=== PATIENT | female | born 1975 | race Caucasian/White ===

== ENCOUNTER 2017-03-31 09:39 | Observation (INO) | payer BC ==
--- NOTE | ~2017-03-31 | DS ---
Unit #: [id number] #: [id number] Patient: LAURYN DEE [id number] [address] [address] [id number] I MR#: [id number] NAME: LAURYN DEE ROOM: 4 Age: 42 Sex: F Admission Date: 03/31/2017 : 1975 Discharge Date: Attending Physician: Yogesh Robbins M.D. Primary Care Physician: Jordy Navas M.D. DISCHARGE SUMMARY DISCHARGE DIAGNOSES 1. Dyspnea. 2. Atypical chest pain. 3. Hypertension. PROCEDURES PERFORMED The patient underwent a stress echo which shows an left ventricular ejection fraction within normal limits and her valves are within normal limits. DIAGNOSTIC DATA LABORATORY: Most recent, d-dimer 244, sodium 136, potassium 3.5, chloride 104, CO2 24, BUN 19, creatinine 1, glucose 86, white blood cell count 5.8, hemoglobin 5.6, troponin less than 0.03 times 3, TSH 1.8, cholesterol 153, triglycerides 75, LDL 72, HDL 66. HOSPITAL COURSE The patient is a 42-year-old female who has a past medical history of chronic bronchitis. Here she reports that she does exercise three to four times weekly and runs approximately four miles and also plays on four different softball leagues. The patient reports that she has taken Norvasc in the past, but has been taken off of it. The day prior to admission the patient was working out and felt extremely short of breath. It took her 30 minutes to recover and she noted during that time her blood pressure was 155/85. She also had some associated symptoms that included tingling down her left arm as well as in her left upper chest. After some time passed the tingling felt better and she went on to her softball game, but was unable to run to the first base without becoming significantly short of breath and that was unusual for her. In the emergency department her blood pressure was 158/110. She was given nitroglycerin and aspirin for her chest pain. Her blood pressure improved to 118/63. The patient's troponins were less than 0.03 times 3. The patient's cholesterol panel was within normal limits. Her TSH was 1.8. The patient underwent a stress echocardiogram which showed a normal ejection fraction and that her valves were also normal. The patient has been started on lisinopril for her elevated blood pressure. Dr. Robbins has seen the patient and deemed that she is stable for discharge. Unit #: [id number] #: [id number] Patient: LAURYN DEE DISPOSITION The patient will be discharged home. FOLLOWUP 1. Follow up with Dr. Robbins in three weeks. 2. Follow up with primary care provider in one week. DIET Healthy heart diet. ACTIVITY As tolerated. DISCHARGE MEDICATIONS 1. Lisinopril 5 mg p.o. daily. 2. Tylenol 1-2 tablets 325 mg q.4 h. p.r.n. headache. 3. Zyrtec 10 mg p.o. daily. 4. ProAir inhaler 1 puff inhalation p.r.n. wheezing. Dictated by... Delma Lopez A.P.R.N. for Yogesh Robbins M.D. AM/caitlyn TD: 04/01/2017 12:07 JOB #: [id number] DISCHARGE SUMMARY Page 1 of 1 X Delma Lopez APRN X DISCHARGE SUMMARY
--- NOTE | ~2017-03-31 | CR72 ---
[facility]. [facility] A Service of [facility] & [facility] RADIOLOGY TEXT RESULTS PATIENT: LAURYN DEE LOCATION: SEDOF [id number] : [birth year] UNIT #: [id number] AGE: [address]: Yogesh Robbins MD SEX: F ORDER DR: [id number] [place] [id number] I MR#: [id number] Acc #: [id number] NAME: LAURYN DEE : 1975 SEX: F STUDY DATE/TIME: 03/31/2017 UNIT: SEDOF ROOM: [id number] STUDY DESCRIPTION: CR Chest Single View Portable Attending Physician: Yogesh Robbins M.D. Ordering Physician: Jameson Henry M.D. Primary Care Physician: Jordy Navas M.D. MEDICAL IMAGING REPORT This report is preliminary unless electronic signature is present. EXAM Chest portable 03/31/2017 1058 hours HISTORY Chest pain and shortness of air since last night with tingling in arm today. COMPARISON None. FINDINGS Portable upright chest demonstrates normal cardiac, mediastinal and aortic contours. The pulmonary katie are normal. The lungs are well expanded and clear. No effusions. IMPRESSION No acute cardiopulmonary findings. Dictated by... Pham Chacon M.D. THIS IS AN ELECTRONICALLY VERIFIED REPORT Pham Chacon M.D. at 03/31/2017 2:29 PM LUCY/kyaw TD: 03/31/2017 13:31 JOB #: [id number] MEDICAL IMAGING REPORT Page 1 of 1
--- NOTE | ~2017-03-31 | EKG ---
PATIENT: LAURYN DEE UNIT #: [id number] Ventricular Rate: 71 BPM Atrial Rate: 71 BPM P-R Interval: 152 ms QRS Duration: 74 ms Q-T Interval: 410 ms QTC Calculation(Bezet): 445 ms P [place]: 26 degrees Calculated R [place]: 54 degrees Calculated T [place]: 37 degrees Diagnosis Line: Normal sinus rhythm Diagnosis Line: Normal ECG Diagnosis Line: No previous ECGs available Diagnosis Line: Confirmed by SONDRA MANZANO MD ([id number]) on 04/01/2017 Diagnosis Line: 5:50:02 PM INTERPRETING MD: NATACHA TOVAR
--- NOTE | ~2017-03-31 | HP ---
Unit #: [id number] #: [id number] Patient: LAURYN DEE [id number] [address] [place], [place] [address] [id number] I MR#: [id number] NAME: LAURYN DEE ROOM: 574 Age: 42 Sex: F Admission Date: 03/31/2017 : 1975 Attending Physician: Yogesh Robbins M.D. Primary Care Physician: Jordy Navas M.D. HISTORY AND PHYSICAL CHIEF COMPLAINT Chest pain. HISTORY OF PRESENT ILLNESS Ms. Dee is a 42-year-old female that was debilitated by bronchitis in November, December and January of this year. She usually runs 4 miles three to four times a week, as well as playing in four different softball leagues. While she was being treated for bronchitis, she required an inhaler. Her blood pressure was noted to be elevated during this time and she was given Norvasc to take. After her symptoms resolved, she went back to running 4 miles a day and has been playing softball for the last few weeks without any difficulties. Yesterday morning, she was working out and felt as though she was very short of breath. It took her 30 minutes to recover and she took her blood pressure noting that it was 155/85. The associated symptoms with this include tingling down her left arm as well as in her left upper chest. She went to a softball game yesterday afternoon and was unable to run to first base without being extremely short of breath. This is very unusual for her. This morning, her blood pressure was elevated again and she took another blood pressure medicine and called her primary care physician who recommended that she come to the emergency room. Upon arrival, her blood pressure was 158/110. She was given nitroglycerin to her chest as well as aspirin. Her blood pressure has responded and is now 118/63. Currently, during my interview, she is pain-free and is having no symptoms. This information is received from patient interview. PRIOR CARDIAC TESTING HISTORY None. PAST MEDICAL HISTORY Includes: 1. Hypertension, diagnosed in early 2016, while begin treated for bronchitis. She monitors her blood pressures at home and has not required treatment since January as her blood pressures have been in normal range. 2. Seasonal allergies. 3. Left knee surgery. 4. Left ear surgery. HOME MEDICATIONS Include: 1. ProAir one inhalation daily as needed. 2. Claritin one dose daily. 3. Amlodipine 5 mg daily as needed. Unit #: [id number] #: [id number] Patient: LAURYN DEE ALLERGIES No known drug allergies. SOCIAL HISTORY She denies ever using tobacco. She drinks alcoholic socially. She denies the use of drugs. FAMILY HISTORY Mother had diabetes and hypertension and of encephalitis at age 62. Her father is alive and well as well as a sister. REVIEW OF SYSTEMS GENERAL: Denies fever, chills, flu-like symptoms or unintentional weight loss. SKIN: Denies any rashes, ulcerations, or wounds. HEAD: Headache currently. EYES: Denies any sudden change in vision. EARS: Denies any sudden change in hearing. HEMATOLOGY: Denies epistaxis, hemoptysis, hematuria, or melena. THROAT: Denies any problem swallowing. RESPIRATORY: Positive for wheeze, slight cough, and shortness of breath as described in HPI. CHEST: Denies any pain. Positive for palpitations and tachycardia occasionally but no PND or orthopnea. GASTROINTESTINAL: Denies any nausea, vomiting, diarrhea, constipation, or changes in stools. GENITOURINARY: Denies burning or urgency. EXTREMITIES: Denies any swelling or increased pain with walking. NEUROLOGIC: Positive for numbness and tingling of the left arm and left upper chest but no seizure, stroke-like symptoms, dizziness, unsteadiness, or falls. PHYSICAL EXAMINATION VITAL SIGNS: Blood pressure 118/63, heart rate 68, respirations 16, temperature 98.4. GENERAL: Well-developed, well-nourished white female in no acute distress resting in the bed. SKIN: No obvious rashes or ulcerations noted. HEENT: Eyes: PERRLA. No xanthelasma. Oral good dentition, moist mucous membranes, no pallor. NECK: No carotid bruits auscultated bilaterally. No jugular vein distention. SPINE: No scoliosis. LUNGS: Clear to auscultation bilaterally. No wheezes, rales, or rhonchi. CARDIAC: Her heart tones are slightly hyperdynamic with S1 and S2, no murmur, rub, gallop or lift. ABDOMEN: Soft, nontender. Positive bowel sounds. EXTREMITIES: Bilateral pedal pulses are +2. No edema. NEUROLOGIC: Alert and oriented x3. Speech is clear. No obvious neurologic deficits. DIAGNOSTIC STUDIES LABORATORY: BNP 11. D-dimer 233. PT 10.7, INR 0.9. Sodium 136, potassium 3.5, BUN 19, creatinine 1.0, AST 27, ALT 21, albumin 4.7, magnesium 2.1. Troponin less than 0.05 at 10:30 a.m. this morning. test is negative. Hemoglobin 15.6, hematocrit 46, platelets 202, white blood cell count 5.8. Unit #: [id number] #: [id number] Patient: LAURYN DEE IMAGING: CT negative for pulmonary embolus with an incidental mass in the lateral segment of the left lobe and liver measuring several centimeters with a clear central scar. 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 CARDIOVASCULAR: EKG shows normal sinus rhythm, otherwise normal. IMPRESSION 1. Chest pain and dyspnea on exertion. 2. Hypertension. PLAN 1. We will complete a 2D echocardiogram and a stress test. 2. We will follow serial enzymes. 3. We will initiate lisinopril for blood pressure control at a very low dose. 4. Further recommendations based on the above-mentioned testing. Dictated by Pito GalvinPeFrnyRFernyN. for Yogesh Robbins M.D. Juan Pablo TD: 03/31/2017 16:44 JOB #: [id number] HISTORY AND PHYSICAL Page 1 of 1 X X HISTORY AND PHYSICAL
--- NOTE | ~2017-03-31 | CT16 ---
[facility] A Service of [facility] & [facility] / [facility] RADIOLOGY TEXT RESULTS PATIENT: LAURYN DEE LOCATION: [facility] 574-01 : [birth year] UNIT #: [id number] AGE: [address]: Yogesh Robbins MD SEX: F ORDER DR: [id number] [place] [id number] MR#: [id number] Acc #: [id number] NAME: LAURYN DEE : 1975 SEX: F STUDY DATE/TIME: 03/31/2017 11:25 UNIT: SEDOF ROOM: [id number] STUDY DESCRIPTION: CT Angio Chest for PE Attending Physician: Yogesh Robbins M.D. Ordering Physician: Jameson Henry M.D. Primary Care Physician: Jordy Navas M.D. MEDICAL IMAGING REPORT This report is preliminary unless electronic signature is present. EXAM CT angiogram of the chest for pulmonary embolism 03/31/2017 1125 hours HISTORY 42-year-old woman complaining of shortness of air with left-sided chest pain since yesterday. Tingling in left arm today. Elevated D-dimer at 233. Evaluate for acute pulmonary embolism. COMPARISON Chest film 03/31/2017. No prior CT scans. TECHNIQUE Dynamic helical CT angiographic images were obtained from the thoracic inlet through the adrenal glands with contrast. 3-D sagittal and coronal reconstructions were performed. Contrast was Isovue-370 100 mL. Total exam DLP 646 mGy-cm. This CT examination was performed with one or more of the following radiation dose reduction techniques: automatic exposure control, adjustment of mA and/or kV according to patient size, and iterative reconstruction. FINDINGS Images through the thoracic inlet demonstrate no thyroid mass or supraclavicular adenopathy. Images through the chest demonstrate diagnostic quality opacification of the pulmonary arteries which are normal in caliber. There are no filling defects to suggest the presence of pulmonary emboli. The aorta is only partially opacified with contrast. Ascending aorta measures 3.3 cm. No dissection is seen. There is no adenopathy. There is no pericardial or pleural fluid. The esophagus is normal. Lung window images demonstrate minimal dependent linear reticular change in both lungs likely atelectasis. There is no evidence of pneumonia, STS. [facility] A Service of [facility] & [facility] RADIOLOGY TEXT RESULTS PATIENT: LAURYN DEE LOCATION: C5 574-01 : [birth year] UNIT #: [id number] AGE: [address]: Yogesh Robbins MD SEX: F ORDER DR: edema or nodule. Limited views through the upper abdomen demonstrate a large lesion in the lateral segment left lobe of the liver measuring up to 8.7 x 5.9 x 9.6 cm. This has an area of low attenuation within its posterior inferior aspect likely a central scar. This is incompletely evaluated. The appearance and the patient's age suggests that this may represent focal nodular hyperplasia. If not previously evaluated, suggest further evaluation with multiphase liver CT or liver MRI. The adrenal glands are normal. The kidneys appear normal. The bones are unremarkable. IMPRESSION 1. No evidence of pulmonary embolism. 2. Normal aorta. 3. No acute findings in the lungs. There is no pleural fluid or pneumothorax. Normal bones. 4. There is an incidental mass in the lateral segment left lobe of the liver measuring up to 8.7 x 5.9 x 9.6 cm with a clear central scar. This appearance and the patient's age suggests this is most likely focal nodular hyperplasia. If not previously evaluated, I would suggest followup non emergent multiphase liver CT or liver MRI. Dictated by... Pham Chacon M.D. THIS IS AN ELECTRONICALLY VERIFIED REPORT Pham Chacon M.D. at 04/01/2017 9:30 AM Madalyn TD: 03/31/2017 14:22 JOB #: [id number] MEDICAL IMAGING REPORT Page 1 of 1
[2017-03-31] MEDS ORDERED: PROAIR INHALER INH (09:51)
[2017-03-31] MEDS ORDERED: CLARITIN PO (09:51)
[2017-03-31] MEDS ORDERED: AMLODIPINE BESYLATE PO (09:52)
[2017-03-31 10:26] LABS: BASOPHIL% 0.6 % (0-2.5); EOSINOPHIL# 0.1 X10e3 (0-0.7); HEMOGLOBIN 15.6 gm/dL (12.0-16.0); LYMPHOCYTE# 1.7 X10e3 (1.0-3.5); MEAN CELL VOLUME 97.6 FL (83-96); MEAN CORPUSCULAR HEMOGLOBIN 33.1 PG (28-34); MONOCYTE# 0.3 X10e3 (0-1.0); MONOCYTE% 5.7 % (3.0-12.0); NEUTROPHIL# 3.7 X10e3 (1.5-7.1); NEUTROPHIL% 63.7 % (40-75); PLATELET COUNT 202 X10e3 (140-420); RED BLOOD COUNT 4.71 X10e (3.90-5.30); RED CELL DISTRIBUTION WIDTH 13.1 % (11.0-15.5); WHITE BLOOD COUNT 5.8 X10e3 (4.0-10.5)
[2017-03-31 10:28] LABS: DIFF IND NO
[2017-03-31 10:37] LABS: POC - CKMB <1.0 ng/mL (0.0-7.9); POC - TROPONIN <0.05 ng/mL (<=0.05)
[2017-03-31 10:40] LABS: INR 0.9; PROTHROMBIN TIME (PATIENT) 10.7 SECONDS (9.5-12.4)
[2017-03-31 10:44] LABS: ALBUMIN SERUM 4.7 g/dL (3.5-5.0); BILIRUBIN, DIRECT 0.1 mg/dL (0.0-0.2); BILIRUBIN,INDIRECT 0.6 mg/dL (0.0-0.9); BILIRUBIN,TOTAL 0.7 mg/dL (0.2-2.0); GLOM FILT RATE Estimated 70.4 mL/min (>60); MAGNESIUM 2.1 mg/dL (1.6-3.0); PROTEIN TOTAL SERUM 7.7 g/dL (6.0-8.3)
[2017-03-31 10:47] LABS: PARTIAL THROMBOPLASTIN TIME 27.3 SECONDS (25.6-38.1)
[2017-03-31 10:53] LABS: CALCIUM SERUM 9.3 mg/dL (8.4-10.2); POTASSIUM 3.5 mmol/L (3.5-5.1)
[2017-03-31] MEDS ORDERED: ZYRTEC10 M1 PO (16:47)
[2017-03-31 18:39] LABS: CHOLESTEROL 153 mg/dL (0-200); HDL CHOLESTEROL 66 mg/dL (35-95); LDL CHOLESTEROL 72 mg/dL (-130); LDL/HDL RATIO 1 RATIO (0-4); TRIGLYCERIDES 75 mg/dL (10-160)
[2017-04-01] MEDS ORDERED: PRINIVIL5 MG PO (14:25)
[2017-04-01] MEDS ORDERED: ACETAMINOPHEN325 MG PO (14:43)
== END 2017-04-01 15:24 | disposition home or self-care (01) | DRG 204 ==
LOC: SED 09:39 → SEDOF 12:40 → C5C 15:22 → SEDOF 15:22 → C5C 15:40 → SEDOF 15:40 → C5C 04-01 15:24
PROVIDERS: Emergency Medicine
DX: R06.00 Dyspnea, unspecified (principal); R07.89 Other chest pain; I10 Essential (primary) hypertension; Z83.3 Family history of diabetes mellitus; Z82.49 Family history of ischemic heart disease and other diseases of the circulatory system; R16.0 Hepatomegaly, not elsewhere classified
CPT/HCPCS: 36415; 71010; 71275; 80048; 80061; 80076; 82553; 83036; 83735; 83880; 84443; 84484; 84703; 85025; 85379; 85610; 85730; 93351; 96360; 96361; 99285; G0378; Q9967